=== PATIENT | male | born 2000 | race Caucasian/White ===

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

== ENCOUNTER 2022-04-22 15:52 | Emergency (ER) | payer OTHER ==
[~2022-04-22] VITALS: Ht 180.3 cm; Wt 84.3 kg
[2022-04-22 15:52] VITALS: BP 145/91
[~2022-04-22 15:52] MED LIST: BACT800T5 PO; METH54TA5; PRED10TA2 PO; QC A650T3 PO
[2022-04-22] MEDS ORDERED: IBUPROFEN 600MG TAB PO ONE (19:10)
== END 2022-04-22 19:23 | disposition home or self-care (01) ==
LOC: M ED 15:52
DX: S93.402A Sprain of unspecified ligament of left ankle, initial encounter (principal); X50.1XXA Overexertion from prolonged static or awkward postures, initial encounter; Y92.098 Other place in other non-institutional residence as the place of occurrence of the external cause; Y93.51 Activity, roller skating (inline) and skateboarding; F90.9 Attention-deficit hyperactivity disorder, unspecified type

== ENCOUNTER 2024-03-20 02:55 | Emergency (ER) | payer OTHER ==
[~2024-03-20] VITALS: Ht 180.3 cm; Wt 76.0 kg
[2024-03-20] MEDS: predniSONE 20 MG TAB PO ONE (06:30)
[2024-03-20] MEDS ORDERED: CEPH500C PO (06:34)
[2024-03-20] MEDS ORDERED: PRED20TA PO (06:34)
[2024-03-20 06:43] VITALS: BP 132/75; TEMP 98.5; O2SAT 99
== END 2024-03-20 06:57 | disposition home or self-care (01) ==
LOC: M ED 02:55
DX: L23.7 Allergic contact dermatitis due to plants, except food (principal); Z79.52 Long term (current) use of systemic steroids; Z79.2 Long term (current) use of antibiotics

== ENCOUNTER → 2024-12-04 03:12 | Emergency (ER) | payer OTHER ==
[~2024-12-04] VITALS: Ht 177.8 cm; Wt 74.0 kg
[~2024-12-04 03:12] MED LIST changes: +CEPH500C PO; +PRED20TA PO
[2024-12-04 03:59] LABS: HEMATOCRIT 45.1 % (42.0-52.0); HEMOGLOBIN 15.4 g/dl (13.5-17.5); MEAN CORPUSCULAR HEMOGLOBIN 30.7 pg (27.0-33.0); MEAN CORPUSCULAR HGB CONC 34.1 g/dl (32.0-36.5); MEAN CORPUSCULAR VOLUME 89.8 fl (80.0-96.0); PLATELET COUNT, AUTOMATED 201 10^3/uL (150-450); RED BLOOD COUNT 5.02 10^6/uL (4.30-6.10); WHITE BLOOD COUNT 12.2 10^3/uL (4.0-10.0)
[2024-12-04 04:30] LABS: ALBUMIN 4.9 G/DL (3.2-5.2); ALKALINE PHOSPHATASE 72 U/L (40-129); ALT/SGPT 11 U/L (7.0-40); AST/SGOT 26 U/L (<34); BILIRUBIN,DIRECT 0.5 MG/DL (<0.4); BILIRUBIN,TOTAL 1.8 MG/DL (0.3-1.2); BLOOD UREA NITROGEN 9 MG/DL (9-23); CALCIUM LEVEL 9.6 MG/DL (8.5-10.1); CARBON DIOXIDE LEVEL 22 MMOL/L (20-31); CHLORIDE LEVEL 110 MMOL/L (98-107); CREATININE FOR GFR 0.73 MG/DL (0.70-1.30); GLOMERULAR FILTRATION RATE > 60.0 (>60); GLUCOSE, FASTING 109 MG/DL (60-100); SALICYLATE LEVEL < 3.0 MG/DL (<30); SODIUM LEVEL 146 MMOL/L (136-145); TOTAL PROTEIN 7.9 G/DL (5.7-8.2)
[2024-12-04 04:32] LABS: THYROID STIMULATING HORMONE 2.583 uIU/ML (0.55-4.78)
[2024-12-04 05:00] LABS: ETHYL ALCOHOL (ETHANOL) 0.236 % (0.000-0.010)
[2024-12-04 05:02] LABS: AMPHETAMINES LEVEL URINE NEGATIVE (NEGATIVE); BENZODIAZEPINES URINE NEGATIVE (NEGATIVE)
[2024-12-04 05:03] LABS: BARBITURATES URINE NEGATIVE (NEGATIVE); COCAINE METABOLITE URINE NEGATIVE (NEGATIVE); METHADONE URINE NEGATIVE (NEGATIVE); OPIATES URINE NEGATIVE (NEGATIVE); PHENCYCLIDINE URINE NEGATIVE (NEGATIVE)
[2024-12-04 05:07] LABS: CANNABINOIDS URINE POSITIVE (NEGATIVE)
[2024-12-04 06:28] VITALS: BP 140/82; TEMP 97.6; O2SAT 100
[2024-12-04] MEDS: LORazepam 1 MG TAB PO STA (07:03)
== END | disposition home or self-care (01) ==
LOC: M ED 03:12
DX: F43.0 Acute stress reaction (principal); F10.120 Alcohol abuse with intoxication, uncomplicated; F17.210 Nicotine dependence, cigarettes, uncomplicated; Z79.2 Long term (current) use of antibiotics; Z79.52 Long term (current) use of systemic steroids